=== PATIENT | male | born 1975 | race Caucasian/White ===

== ENCOUNTER 2022-05-27 18:40 | Inpatient (IN) | payer MEDICAID ==
[~2022-05-27] VITALS: Ht 162.6 cm; Wt 83.9 kg
[2022-05-27] MEDS ORDERED: NITROGLYCERIN 0.4MG TABLET SL SL PRN (19:15)
[2022-05-27] MEDS ORDERED: ASPIRIN 81MG TABLET PO ONE (19:15)
[2022-05-27 20:03] LABS: BASOPHILS % 0.8 % (0.0-2.0); EOSINOPHILS % 5.4 % (0.0-5.0); HEMATOCRIT. 52.1 % (42.0-52.0); HEMOGLOBIN. 17.3 g/dL (14.0-18.0); LYMPHOCYTES % 25.3 % (20.0-50.0); MEAN CORPUSCULAR HEMOGLOBIN 29.6 pg (28.0-32.0); MEAN CORPUSCULAR VOLUME 89.1 fL (80.0-94.0); MEAN PLATELET VOLUME 8.9 fl (7.4-10.4); MONOCYTES % 8.9 % (2.0-8.0); NEUTROPHILS % 59.6 % (40.0-76.0); PLATELET 222 x1000/uL (130-400); RED BLOOD CELL COUNT 5.84 mill/uL (4.7-6.1); RED CELL DISTRIBUTION WIDTH 15.1 % (11.6-14.6)
[2022-05-27 20:13] LABS: PARTIAL THROMBOPLASTIN TIME 28.2 sec (23.4-31.0); PROTHROMBIN TIME 10.3 sec (9.6-11.0)
[2022-05-27 20:14] LABS: CHLORIDE 107 mEq/L (98-107)
[2022-05-27] MEDS ORDERED: NITROGLYCERIN OINT 1GM/INCH UDPKT TD ONE (21:00)
[2022-05-27] MEDS ORDERED: MORPHINE SULFATE 4 MG/ML CPJ (NOT FOR IM USE) IV ONE (23:15)
[2022-05-28 08:00] VITALS: BP 156/99
[2022-05-28] MEDS ORDERED: METOPROLOL TARTRATE 5MG/5ML VIAL IV PRN (08:15)
[2022-05-28] MEDS ORDERED: ONDANSETRON HCL 4MG/2ML INJ IV PRN (08:30)
[2022-05-28] MEDS ORDERED: METOPROLOL TARTRATE 25MG TABLET PO SCH (09:00)
[2022-05-28 09:30] VITALS: BP 156/99
[2022-05-28 10:00] VITALS: BP 156/99
[2022-05-28] MEDS ORDERED: AMLODIPINE 5MG TABLET PO SCH (10:45)
[2022-05-28] MEDS ORDERED: METF-414 PO (11:01)
[2022-05-28] MEDS ORDERED: CARV6.2548 PO (11:02)
[2022-05-28] MEDS ORDERED: FAMO20TA8 PO (11:02)
[2022-05-28] MEDS ORDERED: ASPI-1497 PO (11:03)
[2022-05-28] MEDS ORDERED: SACU1TAB PO (11:04)
[2022-05-28] MEDS ORDERED: ATOR10TA69 PO (11:04)
[2022-05-28] MEDS ORDERED: AMIO100T4 MT (11:06)
[2022-05-28 12:00] VITALS: BP 165/105
[2022-05-28] MEDS ORDERED: NITROGLYCERIN SPRAY/4.9GM CAN TL NR (12:30)
[2022-05-28] MEDS ORDERED: IOHEXOL-350 100 ML BOTTLE ONE (12:38)
[2022-05-28] MEDS ORDERED: NITROGLYCERIN OINT 1GM/INCH UDPKT TD SCH (14:00)
[2022-05-29] MEDS ORDERED: ASPIRIN 81MG TABLET PO SCH (09:00)
== END 2022-05-28 14:00 | disposition left against medical advice (07) | DRG 203 ==
LOC: ER 18:53 → MICUSO 23:05 → 8WST 05-28 09:27
PROVIDERS: ADMIT Internal Medicine; ATTEND Internal Medicine
DX: M94.0 Chondrocostal junction syndrome [Tietze] (principal); I25.110 Atherosclerotic heart disease of native coronary artery with unstable angina pectoris; E11.9 Type 2 diabetes mellitus without complications; I10 Essential (primary) hypertension; Z20.822 Contact with and (suspected) exposure to COVID-19; Z53.29 Procedure and treatment not carried out because of patient's decision for other reasons; I16.0 Hypertensive urgency; E66.9 Obesity, unspecified; I25.2 Old myocardial infarction; Z68.31 Body mass index [BMI] 31.0-31.9, adult; Z95.5 Presence of coronary angioplasty implant and graft; Z95.810 Presence of automatic (implantable) cardiac defibrillator
CPT/HCPCS: 36415; 71045; 75571; 80053; 82962; 84484; 85025; 85379; 87426; 93005; 93306; 99291; J2270; Q9967